=== PATIENT | male | born 2000 | race Caucasian/White ===

== ENCOUNTER 2022-10-03 10:42 | Emergency (ER) | payer MEDICAID ==
[~2022-10-03] VITALS: Ht 172.7 cm; Wt 103.0 kg
[2022-10-03] MEDS ORDERED: CEFTRIAXONE 1 G PREMIX 50 ML IV ONE (12:30)
[2022-10-03] MEDS ORDERED: LIDOCAINE HCL/PF 1% 10 MG/ML 5ML VIAL INFIL ONE (12:30)
[2022-10-03] MEDS ORDERED: SODIUM CHLORIDE 0.9% 1000ML BAG (SEPSIS BOLUS) IV ONE (12:30)
[2022-10-03] MEDS ORDERED: VANCOMYCIN 1G PREMIX 200 ML IV ONE (12:30)
[2022-10-03] MEDS ORDERED: TETANUS, DIPHTHERIA, PERTUSSIS VAC/PF 0.5ML (>10YR OLD) IM ONE (12:30)
[2022-10-03] MEDS ORDERED: KETOROLAC 30MG/ML VIAL IV ONE (12:30)
[2022-10-03] MEDS ORDERED: BACITRACIN ZINC OINT UDPKT TOP ONE (12:30)
[2022-10-03 13:45] LABS: BASOPHILS % 0.4 % (0.0-2.0); EOSINOPHILS % 0.5 % (0.0-5.0); HEMATOCRIT. 41.2 % (42.0-52.0); HEMOGLOBIN. 14.3 g/dL (14.0-18.0); LYMPHOCYTES % 16.9 % (20.0-50.0); MEAN CORPUSCULAR HEMOGLOBIN 30.4 pg (28.0-32.0); MEAN CORPUSCULAR VOLUME 87.3 fL (80.0-94.0); MEAN PLATELET VOLUME 9.5 fl (7.4-10.4); MONOCYTES % 8.2 % (2.0-8.0); PLATELET 245 x1000/uL (130-400); RED BLOOD CELL COUNT 4.72 mill/uL (4.7-6.1); RED CELL DISTRIBUTION WIDTH 13.6 % (11.6-14.6)
[2022-10-03 13:56] LABS: CHLORIDE 104 mEq/L (98-107); PROTHROMBIN TIME 10.8 sec (9.6-11.0)
[2022-10-03] MEDS ORDERED: ONDANSETRON 4MG ODT PO ONE (16:15)
[2022-10-03] MEDS ORDERED: MORPHINE SULFATE 4 MG/ML CPJ (NOT FOR IM USE) IV ONE (22:00)
[2022-10-03 22:20] VITALS: BP 128/78
== END 2022-10-03 22:30 | disposition short-term general hospital (02) ==
LOC: ER 10:59
DX: L02.811 Cutaneous abscess of head [any part, except face] (principal); L03.811 Cellulitis of head [any part, except face]; R00.0 Tachycardia, unspecified; Z20.822 Contact with and (suspected) exposure to COVID-19
CPT/HCPCS: 10060; 36415; 71045; 80053; 83605; 84145; 85025; 85610; 87040; 87426; 90471; 90715; 93005; 96365; 96367; 96375; 99285; C9803; J0696; J1885; J2270; J3370; J3490; J7030; Q0162; Z7610